=== PATIENT | male | born 1985 | race Two or more races ===

== ENCOUNTER 2022-05-29 17:44 | Emergency (ER) | payer SELFPAY ==
[~2022-05-29] VITALS: Ht 177.8 cm; Wt 83.9 kg
--- NOTE | 2022-05-29 17:55 | NUR ---
LEFT SHOULDER AND WRIST PAIN- [facility] TO ER AFTER A BYSTANDER CALLED 911.
--- NOTE | 2022-05-29 18:08 | NUR ---
XRAY AT BEDSIDE
[2022-05-29 19:10] VITALS: BP 112/75
--- NOTE | 2022-05-29 19:10 | NUR ---
Patient discharged to home in stable condition. Written and verbal after care instructions given. Patient verbalizes understanding of instruction.
== END 2022-05-29 19:11 | disposition home or self-care (01) ==
LOC: ER 17:59
DX: M79.602 Pain in left arm (principal); M21.332 Wrist drop, left wrist; F29 Unspecified psychosis not due to a substance or known physiological condition; Z59.00 Homelessness unspecified
CPT/HCPCS: 73030-TC; 73090-TC; 73110